=== PATIENT | male | born 1990 | race Caucasian/White ===

== ENCOUNTER → 2017-10-29 | Outpatient (CLI) | payer SELFPAY | LOC: M WUC 16:13 | DX: S61.442A Puncture wound with foreign body of left hand, initial encounter (principal); X58.XXXA Exposure to other specified factors, initial encounter; Y92.89 Other specified places as the place of occurrence of the external cause; Y99.9 Unspecified external cause status ==

== ENCOUNTER 2017-11-08 00:30 | Emergency (ER) | payer SELFPAY ==
[2017-11-08 00:38] LABS: HEMOGLOBIN 15.9 g/dl (14.0-18.0); MEAN CORPUSCULAR HEMOGLOBIN 31.7 pg (27.0-33.0); MEAN CORPUSCULAR HGB CONC 34.6 g/dl (32.0-36.5); MEAN CORPUSCULAR VOLUME 91.8 fl (80.0-96.0); PLATELET COUNT, AUTOMATED 254 10^3/uL (150-450); RED BLOOD COUNT 5.01 10^6/uL (4.30-6.10); RED CELL DISTRIBUTION WIDTH 11.9 % (11.5-14.5); WHITE BLOOD COUNT 16.2 10^3/uL (4.0-10.0)
[2017-11-08 00:48] LABS: AMPHETAMINES LEVEL URINE NEGATIVE (NEGATIVE); BARBITURATES URINE NEGATIVE (NEGATIVE); BENZODIAZEPINES URINE NEGATIVE (NEGATIVE); CANNABINOIDS URINE NEGATIVE (NEGATIVE); COCAINE METABOLITE URINE NEGATIVE (NEGATIVE); METHADONE URINE NEGATIVE (NEGATIVE); OPIATES URINE NEGATIVE (NEGATIVE); PHENCYCLIDINE URINE NEGATIVE (NEGATIVE)
[2017-11-08 00:55] LABS: ALBUMIN 4.7 GM/DL (3.2-5.2); ALBUMIN/GLOBULIN RATIO 1.52 (1.00-1.93); ALKALINE PHOSPHATASE 108 U/L (45-117); ALT/SGPT 31 U/L (12-78); ANION GAP 6 MEQ/L (8-16); AST/SGOT 31 U/L (7-37); BILIRUBIN,DIRECT < 0.1 MG/DL (0.0-0.2); BILIRUBIN,TOTAL 0.2 MG/DL (0.2-1.0); BLOOD UREA NITROGEN 14 MG/DL (7-18); CALCIUM LEVEL 9.4 MG/DL (8.5-10.1); CARBON DIOXIDE LEVEL 29 MEQ/L (21-32); CHLORIDE LEVEL 111 MEQ/L (98-107); CREATININE FOR GFR 0.83 MG/DL (0.70-1.30); ETHYL ALCOHOL (ETHANOL) 0.235 % (0.000-0.010); GLOMERULAR FILTRATION RATE > 60.0 (>60); GLUCOSE, FASTING 95 MG/DL (70-100); SALICYLATE LEVEL 2.3 MG/DL (5.0-30.0); SODIUM LEVEL 146 MEQ/L (136-145); TOTAL PROTEIN 7.8 GM/DL (6.4-8.2)
[2017-11-08 01:17] LABS: ACETAMINOPHEN LEVEL < 2.0 UG/ML (10.0-30.0)
== END 2017-11-08 08:53 | disposition home or self-care (01) ==
LOC: M ED 00:30
DX: F10.120 Alcohol abuse with intoxication, uncomplicated (principal); F32.9 Major depressive disorder, single episode, unspecified; F17.200 Nicotine dependence, unspecified, uncomplicated; Z79.899 Other long term (current) drug therapy
CPT/HCPCS: G0480

== ENCOUNTER 2017-12-09 22:53 | Emergency (ER) | payer SELFPAY ==
[2017-12-10 00:27] LABS: HEMATOCRIT 44.6 % (42.0-52.0); HEMOGLOBIN 15.2 g/dl (14.0-18.0); MEAN CORPUSCULAR HEMOGLOBIN 31.5 pg (27.0-33.0); MEAN CORPUSCULAR HGB CONC 34.1 g/dl (32.0-36.5); MEAN CORPUSCULAR VOLUME 92.5 fl (80.0-96.0); PLATELET COUNT, AUTOMATED 225 10^3/uL (150-450); RED BLOOD COUNT 4.82 10^6/uL (4.30-6.10); RED CELL DISTRIBUTION WIDTH 11.9 % (11.5-14.5)
[2017-12-10 00:58] LABS: AMPHETAMINES LEVEL URINE NEGATIVE (NEGATIVE); BARBITURATES URINE NEGATIVE (NEGATIVE); BENZODIAZEPINES URINE NEGATIVE (NEGATIVE); CANNABINOIDS URINE NEGATIVE (NEGATIVE); COCAINE METABOLITE URINE NEGATIVE (NEGATIVE); METHADONE URINE NEGATIVE (NEGATIVE); OPIATES URINE NEGATIVE (NEGATIVE); PHENCYCLIDINE URINE NEGATIVE (NEGATIVE)
[2017-12-10 01:01] LABS: ACETAMINOPHEN LEVEL < 2.0 UG/ML (10.0-30.0); ALBUMIN 4.2 GM/DL (3.2-5.2); ALBUMIN/GLOBULIN RATIO 1.56 (1.00-1.93); ALKALINE PHOSPHATASE 99 U/L (45-117); ALT/SGPT 31 U/L (12-78); ANION GAP 10 MEQ/L (8-16); AST/SGOT 26 U/L (7-37); BILIRUBIN,DIRECT < 0.1 MG/DL (0.0-0.2); BILIRUBIN,TOTAL 0.2 MG/DL (0.2-1.0); BLOOD UREA NITROGEN 14 MG/DL (7-18); CARBON DIOXIDE LEVEL 24 MEQ/L (21-32); CHLORIDE LEVEL 110 MEQ/L (98-107); ETHYL ALCOHOL (ETHANOL) 0.249 % (0.000-0.010); GLOMERULAR FILTRATION RATE > 60.0 (>60); GLUCOSE, FASTING 101 MG/DL (70-100); POTASSIUM SERUM 4.2 MEQ/L (3.5-5.1); SALICYLATE LEVEL < 1.7 MG/DL (5.0-30.0); SODIUM LEVEL 144 MEQ/L (136-145); TOTAL PROTEIN 6.9 GM/DL (6.4-8.2)
== END 2017-12-10 09:32 | disposition home or self-care (01) ==
LOC: M ED 22:53
DX: F10.220 Alcohol dependence with intoxication, uncomplicated (principal); F17.210 Nicotine dependence, cigarettes, uncomplicated; Y90.1 Blood alcohol level of 20-39 mg/100 ml
CPT/HCPCS: G0480

== ENCOUNTER 2020-05-30 23:09 | Emergency (ER) | payer SELFPAY ==
[~2020-05-30] VITALS: Ht 172.7 cm; Wt 73.6 kg
[~2020-05-30 23:09] MED LIST: AUGM875T28 PO; BUSP1TAB PO; ESCI20TA PO
[2020-05-30 23:10] VITALS: BP 144/91
== END 2020-05-30 23:58 | disposition left against medical advice (07) ==
LOC: M ED 23:09
DX: Z53.21 Procedure and treatment not carried out due to patient leaving prior to being seen by health care provider (principal)

== ENCOUNTER 2022-04-23 17:06 | Emergency (ER) | payer SELFPAY ==
[~2022-04-23] VITALS: Ht 170.2 cm; Wt 68.2 kg
[~2022-04-23 17:06] MED LIST changes: -ESCI20TA PO; +ESCI20TA16 PO
[2022-04-23 18:39] VITALS: BP 141/87
== END 2022-04-23 18:54 | disposition home or self-care (01) ==
LOC: M ED 17:06
DX: S42.002A Fracture of unspecified part of left clavicle, initial encounter for closed fracture (principal); V86.55XA Driver of 3- or 4- wheeled all-terrain vehicle (ATV) injured in nontraffic accident, initial encounter; F17.200 Nicotine dependence, unspecified, uncomplicated; Y92.9 Unspecified place or not applicable; Y93.9 Activity, unspecified; Y99.9 Unspecified external cause status

== ENCOUNTER → 2022-04-25 | Outpatient (CLI) | payer SELFPAY ==
[~2022-04-25] MED LIST changes: +OXYC1TAB23 PO
== END ==
LOC: M SOG 11:22
PROVIDERS: ATTEND Physician Assistant
DX: S42.022A Displaced fracture of shaft of left clavicle, initial encounter for closed fracture (principal); X58.XXXA Exposure to other specified factors, initial encounter; Y92.9 Unspecified place or not applicable

== ENCOUNTER → 2022-04-26 | Outpatient (CLI) | payer SELFPAY | LOC: M LABSMTC 10:20 | PROVIDERS: ATTEND Anesthesiology | DX: Z01.812 Encounter for preprocedural laboratory examination (principal); Z20.822 Contact with and (suspected) exposure to COVID-19 ==

== ENCOUNTER 2022-04-27 08:01 | Day surgery (SDC) | payer SELFPAY ==
[~2022-04-27] VITALS: Ht 170.2 cm; Wt 69.4 kg
[~2022-04-27 08:01] MED LIST changes: +LR 1,000 ML IV SCH; -OXYC1TAB23 PO
[2022-04-27] MEDS ORDERED: ceFAZolin SOD 2 GM in IV 1 EA IV ONE (09:00)
[2022-04-27] MEDS ORDERED: LIDOCAINE W/EPINEPHRINE 1% 20ML VIAL As Ordered ONE (09:05)
[2022-04-27] MEDS ORDERED: ACETAMINOPHEN 1000MG 100ML IV BTL (OFIRMEV) (J0131 PER 10MG) As Ordered ONE (09:58)
[2022-04-27] MEDS ORDERED: HYDROmorphone HCL 2MG/ML 1ML VIAL As Ordered ONE (10:28)
[2022-04-27] MEDS ORDERED: KETOROLAC 60MG 2ML VIAL As Ordered ONE (10:39)
[2022-04-27] MEDS ORDERED: SUGAMMADEX SODIUM 500 MG/5 ML VIAL (BRIDION) As Ordered ONE (11:15)
[2022-04-27] MEDS ORDERED: LR 1,000 ML IV SCH (11:40)
[2022-04-27] MEDS ORDERED: PERCOCET 5MG/325MG TAB PO PRN (11:40)
[2022-04-27] MEDS ORDERED: fentaNYL 100 MCG/2 ML INJECTION IV PRN (11:40)
[2022-04-27] MEDS ORDERED: ONDANSETRON 4MG 2ML VIAL IV PRN (11:40)
[2022-04-27] MEDS ORDERED: MORPHINE 2 MG/ML 1ML VIAL IV PRN (11:40)
[2022-04-27] MEDS ORDERED: OXYC1TAB23 PO (12:02)
[2022-04-27] MEDS ORDERED: fentaNYL 100 MCG/2 ML INJECTION As Ordered ONE (13:07)
[2022-04-27] MEDS ORDERED: MIDAZOLAM INJ 2MG/2ML VIAL (J2250 PER 1MG) As Ordered ONE (13:07)
[2022-04-27 13:26] VITALS: BP 150/93
[2022-04-28] MEDS ORDERED: UNRESOLVED CLARIFICATION ENTRY XX SCH (00:01)
== END 2022-04-27 13:33 | disposition home or self-care (01) ==
LOC: M SDC 08:01
PROVIDERS: ATTEND Orthopaedic Surgery Hand Surgery
DX: S42.022A Displaced fracture of shaft of left clavicle, initial encounter for closed fracture (principal); X58.XXXA Exposure to other specified factors, initial encounter; Y92.89 Other specified places as the place of occurrence of the external cause; Y93.9 Activity, unspecified; Y99.9 Unspecified external cause status; F17.210 Nicotine dependence, cigarettes, uncomplicated; F32.A Depression, unspecified
CPT/HCPCS: 23515; 76000; C1713; J0131; J0690; J1170; J1885; J2250; J3010

== ENCOUNTER → 2022-05-10 | Outpatient (CLI) | payer SELFPAY ==
[~2022-05-10] MED LIST changes: -LR 1,000 ML IV SCH; +OXYC1TAB23 PO
== END ==
LOC: M SOG 08:23
PROVIDERS: ATTEND Physician Assistant
DX: S42.022A Displaced fracture of shaft of left clavicle, initial encounter for closed fracture (principal); Z96.89 Presence of other specified functional implants

== ENCOUNTER → 2022-06-13 | Outpatient (CLI) | payer SELFPAY | LOC: M SOG 08:26 | PROVIDERS: ATTEND Physician Assistant | DX: S42.022D Displaced fracture of shaft of left clavicle, subsequent encounter for fracture with routine healing (principal) ==

== ENCOUNTER → 2022-07-13 | Outpatient (CLI) | payer SELFPAY | LOC: M SOG 09:00 | PROVIDERS: ATTEND Orthopaedic Surgery Hand Surgery | DX: S42.022D Displaced fracture of shaft of left clavicle, subsequent encounter for fracture with routine healing (principal) ==

== ENCOUNTER → 2022-07-18 | Outpatient (CLI) | payer SELFPAY | LOC: M SOG 15:14 | PROVIDERS: ATTEND Orthopaedic Surgery Hand Surgery | DX: S42.022D Displaced fracture of shaft of left clavicle, subsequent encounter for fracture with routine healing (principal) ==

== ENCOUNTER → 2022-10-12 | Outpatient (CLI) | payer SELFPAY | LOC: M OUTALCOH 10:57 | PROVIDERS: ATTEND Psychiatry & Neurology Psychiatry | DX: F10.10 Alcohol abuse, uncomplicated (principal) ==

== ENCOUNTER 2022-10-26 11:00 | Outpatient (RCR) | payer SELFPAY | END 2022-10-31 | LOC: M OUTALCOH 11:00 | PROVIDERS: ATTEND Psychiatry & Neurology Psychiatry | DX: F10.20 Alcohol dependence, uncomplicated (principal) ==

== ENCOUNTER 2022-11-23 10:00 | Outpatient (RCR) | payer BC, SELFPAY | END 2022-11-28 | LOC: M OUTALCOH 10:00 | PROVIDERS: ATTEND Psychiatry & Neurology Psychiatry | DX: F10.20 Alcohol dependence, uncomplicated (principal) ==

== ENCOUNTER 2022-12-28 08:56 | Outpatient (RCR) | payer BC | END 2022-12-29 | LOC: M OUTALCOH 08:56 | PROVIDERS: ATTEND Psychiatry & Neurology Psychiatry | DX: F10.20 Alcohol dependence, uncomplicated (principal) ==

== ENCOUNTER 2023-01-25 09:00 | Outpatient (RCR) | payer BC | END 2023-01-28 | LOC: M OUTALCOH 09:00 | PROVIDERS: ATTEND Psychiatry & Neurology Psychiatry | DX: F10.20 Alcohol dependence, uncomplicated (principal) ==

== ENCOUNTER 2023-02-16 10:56 | Outpatient (RCR) | payer BC | END 2023-02-28 | LOC: M OUTALCOH 10:56 | PROVIDERS: ATTEND Psychiatry & Neurology Psychiatry | DX: F10.20 Alcohol dependence, uncomplicated (principal) ==